=== PATIENT | male | born 2005 | race Caucasian/White ===

== ENCOUNTER 2023-05-07 23:04 | Emergency (ER) | payer BC ==
[~2023-05-07] VITALS: Ht 175.3 cm; Wt 89.4 kg
[2023-05-07 23:08] VITALS: BP_SYST 112; PULSE 110; RESP 16; TEMP 97.9; TEMP 99.6; O2SAT 97
[2023-05-07] MEDS ORDERED: KETOROLAC TROMETHAMINE 30 MG VIAL IM ONE (23:30)
[2023-05-07 23:52] LABS: BASOPHILS % (AUTO) 0.2 % (0.0-2.0); EOSINOPHILS % (AUTO) 0.2 % (0.0-4.0); HEMATOCRIT 43.3 % (36-54); HEMOGLOBIN 14.6 g/dL (14.0-18.0); LYMPHOCYTES # (AUTO) 1.4 K/uL (1.0-5.5); LYMPHOCYTES % (AUTO) 13.5 % (20.5-51.5); MEAN CORPUSCULAR HEMOGLOBIN 27 pg (27-31); MEAN CORPUSCULAR HGB CONC 34 % (32-36); MEAN CORPUSCULAR VOLUME 80 fL (79.0-98.0); MONOCYTES % (AUTO) 9.8 % (1.7-9.3); NEUTROPHILS # (AUTO) 7.9 K/uL (1.8-7.7); NEUTROPHILS % (AUTO) 76.3 % (40.0-70.0); PLATELET COUNT (AUTO) 227 K/uL (130-430); WHITE BLOOD COUNT (AUTO) 10.3 K/uL (4.5-11.0)
[2023-05-07 23:58] LABS: CALCIUM 9.5 mg/dL (8.4-11.0); CARBON DIOXIDE 28 mmol/L (23-29); GFR AFRICAN AMERICAN 158 mL/min (>90); GLUCOSE 114 mg/dL (74-106); POTASSIUM 3.8 mmol/L (3.5-5.1); SODIUM SERUM 134 mmol/L (136-145); UREA NITROGEN, BLOOD 8 mg/dL (8-21)
[2023-05-08 00:07] LABS: ALANINE AMINOTRANSFERASE 18 U/L (12-78); ALBUMIN 4.2 g/dL (3.4-4.8); ASPARTATE AMINOTRANSFERASE 12 U/L (10-37); TOTAL BILIRUBIN 1.2 mg/dL (0.0-1.0); TOTAL PROTEIN, SERUM 8.5 g/dL (6.4-8.3)
[2023-05-08 00:14] LABS: ANION GAP 7 (5-15); CHLORIDE 99 mmol/L (98-107); GFR NON AFRICAN-AMERICAN 131 mL/min (>90)
[2023-05-08] MEDS ORDERED: LIDO1ADH71 TD (00:44)
[2023-05-08 00:53] VITALS: BP_SYST 136; PULSE 86; RESP 24; TEMP 98.6; O2SAT 95
== END 2023-05-08 00:53 | disposition home or self-care (01) ==
LOC: SED 23:04
DX: R07.89 Other chest pain (principal); R06.02 Shortness of breath; Z88.1 Allergy status to other antibiotic agents; Z79.899 Other long term (current) drug therapy
CPT/HCPCS: 99285; 71046; 80053; 85025; 85379; 84484; 36415; 93005; 96372; J1885